=== PATIENT | male | born 1980 | race African-American/Black ===

== ENCOUNTER 2019-01-17 11:27 | Inpatient (IN) | payer OTHER ==
[~2019-01-17] VITALS: Ht 182.9 cm; Wt 112.5 kg
[2019-01-17 11:34] VITALS: BP 166/105
[2019-01-17 11:54] LABS: URINE BILIRUBIN NEGATIVE (Negative); URINE BLOOD NEGATIVE (Negative); URINE CLARITY CLEAR; URINE COLOR YELLOW; URINE GLUCOSE-RANDOM NEGATIVE (Negative); URINE KETONES NEGATIVE (Negative); URINE LEUKOCYTES-REFLEX NEGATIVE (Negative); URINE NITRITE-REFLEX NEGATIVE (Negative); URINE PROTEIN NEGATIVE (Negative); URINE SPECIFIC GRAVITY 1.025 (1.005-1.030); URINE UROBILINOGEN 0.2 E.U./dl (0.2-1.0)
[2019-01-17 12:03] LABS: ABSOLUTE EOSINOPHILS 0.3 thou/uL (0.0-0.7); ABSOLUTE LYMPHOCYTES 1.9 thou/uL (0.8-5.3); ABSOLUTE MONOCYTES 0.5 thou/uL (0.0-1.2); ABSOLUTE NEUTROPHILS 1.6 thou/uL (1.6-8.1); BASOPHILS 1.1 %; EOSINOPHILS 6.3 %; HEMATOCRIT 42.7 % (42.0-52.0); HEMOGLOBIN 13.8 gm/dL (14.0-18.0); LYMPHOCYTES 43.5 %; MCH 22.2 pg (26.0-34.0); MCHC 32.4 g/dL (28.0-37.0); MCV 68.6 fL (80.0-100.0); MONOCYTES 12.1 %; NUCLEATED RBCS 0 /100WBC; PLATELET COUNT* 221 thou/uL (150-400); RBC 6.22 mil/uL (4.50-6.00); RDW-CV 15.7 % (10.5-14.5); WBC 4.4 thou/uL (4.0-11.0)
[2019-01-17 12:33] LABS: ALBUMIN 3.8 g/dL (3.4-5.0); ALKALINE PHOSPHATASE 61 U/L (46-116); ANION GAP 8 mmol/L (7-16); BUN 11 mg/dL (7-18); CHLORIDE 104 mmol/L (98-107); CO2 28 mmol/L (21-32); CREATININE 1.2 mg/dL (0.6-1.3); GLUCOSE 91 mg/dL (70-99); POTASSIUM 3.9 mmol/L (3.5-5.1); SGOT 23 U/L (15-37); SGPT 40 U/L (30-65); SODIUM 140 mmol/L (136-145); TOTAL BILIRUBIN 0.5 mg/dL (<0.1-1.0); TOTAL PROTEIN 8.1 g/dL (6.4-8.2); TROPONIN-I LEVEL <0.06 ng/mL (<0.06)
[2019-01-17 12:45] LABS: HYPOCHROMASIA 1+; MICROCYTES 3+; PLATELET ESTIMATE ADEQUATE
[2019-01-17 13:42] VITALS: BP 169/105
[2019-01-17 14:30] VITALS: BP 143/96
--- NOTE | 2019-01-17 16:31 | EKG ---
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1980 Requested By: Dora Taylor Order Number: [id number] MD: Philippe Jarvis Measurements Intervals [place] Rate: 58 P: 29 [place]: 183 QRS: 14 QRSD: 104 T: -2 QT: 401 QTc: 394 Interpretive Statements Sinus rhythm Probable left atrial enlargement Left ventricular hypertrophy nonspecific st-t changes No previous ECG available for comparison Electronically Signed On 01-17-2019 16:31:12 CDT by Philippe Jarvis [email or web address] <ELECTRONICALLY SIGNED> By: Philippe Jarvis MD, [facility] 01/17/19 1631 1225 1225 Philippe Jarvis MD, [facility] /EPI
--- NOTE | 2019-01-17 18:44 | 2DMMODE ---
[place] [address] 2 D/M-MODE ECHOCARDIOGRAM Name: EVERARDO HARDEN [place] Room: [address] IN [facility]#: [id number] Admission: 01/17/19 Attend Phys: Genevieve Hurtado, Discharge: Date of : 76 Date of Service: 01/17/19 1844 Report #: [id number] THIS REPORT FOR: //name// APPROVED REPORT Study performed: 01/17/2019 15:51:35 EXAM: Comprehensive 2D, Doppler, and color-flow Echocardiogram Patient Location: In-Patient Room #: [facility] Status: routine BSA: 2.43 HR: 67 bpm BP: 169/105 mmHg Rhythm: NSR Other Information Study Quality: Good Indications Syncope Chest Pain 2D Dimensions IVSd: 13.48 (7-11mm) LVOT Diam: 23.47 (18-24mm) LVDd: 50.86 mm PWd: 11.49 (7-11mm) Ascending Ao: 32.25 (22-36mm) LVDs: 33.03 (25-40mm) Aortic Root: 34.39 mm Volumes Left Atrial Volume (Systole) LA ESV Index: 35.40 mL/m2 Aortic Valve AoV Peak Josué.: 1.38 m/s AO Peak Gr.: 7.56 mmHg LVOT Max P.16 mmHg AO Mean Gr.: 3.89 mmHg LVOT Mean P.97 mmHg LVOT Max V: 1.02 m/s AO V2 VTI: 27.77 cm LVOT Mean V: 0.64 m/s REHANA (VTI): 3.09 cm2 LVOT V1 VTI: 19.82 cm Mitral Valve E/A Ratio: 0.92 MV Decel. Time: 194.76 [place] [address] 2 D/M-MODE ECHOCARDIOGRAM Name: EVERARDO HARDEN [place] Room: [address] IN [facility]#: [id number] Admission: 01/17/19 Attend Phys: Genevieve Hurtado, Discharge: Date of : 76 Date of Service: 01/17/19 1844 Report #: [id number] MV E Max Josué.: 0.63 m/s MV PHT: 56.48 ms MVA (PHT): 3.90 cm2 TDI E/Lateral E': 5.25 E/Medial E': 4.50 Medial E' Josué.: 0.14 m/s Lateral E' Josué.: 0.12 m/s Pulmonary Valve PV Peak Josué.: 1.51 m/s PV Peak Gr.: 9.08 mmHg Tricuspid Valve RAP Estimate: 5.00 mmHg TR Peak Gr.: 29.71 mmHg RVSP: 34.00 mmHg PA Pressure: 34.00 mmHg Left Ventricle The left ventricle is normal size. There is normal LV segmental wall motion. Mild concentric left ventricular hypertrophy. Left ventricular systolic function is normal. LVEF is 60-65%. Transmitral Doppler flow pattern suggests pseudonormalization. Right Ventricle The right ventricle is normal size. The right ventricular systolic function is normal. Atria Left atrium is mildly dilated. The right atrium size is normal. Aortic Valve The aortic valve is normal in structure. No aortic regurgitation is present. There is no aortic valvular stenosis. Mitral Valve The mitral valve is normal in structure. There is no mitral valve regurgitation noted. No evidence of mitral valve stenosis. Tricuspid Valve The tricuspid valve is normal in structure. Trace tricuspid regurgitation. Mild pulmonary hypertension. Pulmonic Valve The pulmonary valve is normal in structure. [place] [address] 2 D/M-MODE ECHOCARDIOGRAM Name: EVERARDO HARDEN [place] Room: [address]#: [id number] Admission: 01/17/19 Attend Phys: Genevieve Hurtado, Discharge: Date of : 76 Date of Service: 01/17/19 1844 Report #: [id number] Great Vessels The aortic root is normal in size. IVC is normal in size and collapses >50% with inspiration. Pericardium There is no pericardial effusion. <Conclusion> The left ventricle is normal size. Mild concentric left ventricular hypertrophy. Left ventricular systolic function is normal. LVEF is 60-65%. Transmitral Doppler flow pattern suggests pseudonormalization. Left atrium is mildly dilated. Trace tricuspid regurgitation. Mild pulmonary hypertension. IVC is normal in size and collapses >50% with inspiration. <ELECTRONICALLY SIGNED> By: Saroj Sampson MD, FACC 01/17/191843 43 43 Saroj Sampson MD, FACC /INF
[2019-01-17 20:00] VITALS: BP 132/86
[2019-01-18] VITALS: BP 138/83
[2019-01-18 04:00] VITALS: BP 128/71
[2019-01-18 05:03] LABS: CHOLESTEROL 204 mg/dL (<200); HDL CHOLESTEROL 44 mg/dL (>40); LDL CHOLESTEROL 106 mg/dL (<100); TC:HDL 4.6 Ratio (Not establshd); TRIGLYCERIDE 273 mg/dL (<150); VLDL 55 mg/dL (<40)
[2019-01-18 05:06] LABS: SERUM ASSESSMENT CLEAR
[2019-01-18 08:10] VITALS: BP 118/76
[2019-01-18] MEDS ORDERED: LISINOPRIL-HCT1 EACH PO (08:33)
[2019-01-18 08:35] VITALS: BP 128/71
[2019-01-18 09:47] VITALS: BP 128/71
== END 2019-01-18 11:15 | disposition home or self-care (01) | DRG 305 ==
LOC: M.ERS 11:27 → M.2W 12:59 → M.TBA-ER 12:59 → M.2W 14:09
PROVIDERS: Personal Emergency Response Attendant; ADMIT Internal Medicine
DX: I16.0 Hypertensive urgency (principal); E78.5 Hyperlipidemia, unspecified; I10 Essential (primary) hypertension; F17.220 Nicotine dependence, chewing tobacco, uncomplicated; K21.9 Gastro-esophageal reflux disease without esophagitis; Z79.82 Long term (current) use of aspirin; Z79.899 Other long term (current) drug therapy; Z91.14 Patient's other noncompliance with medication regimen

== ENCOUNTER 2019-01-20 12:25 | Emergency (ER) | payer OTHER ==
[~2019-01-20] VITALS: Ht 193 cm; Wt 112.5 kg
[~2019-01-20 12:25] MED LIST: LISINOPRIL-HCT1 EACH PO
[2019-01-20 13:00] LABS: ABSOLUTE EOSINOPHILS 0.2 thou/uL (0.0-0.7); ABSOLUTE LYMPHOCYTES 1.4 thou/uL (0.8-5.3); ABSOLUTE MONOCYTES 0.4 thou/uL (0.0-1.2); ABSOLUTE NEUTROPHILS 2.7 thou/uL (1.6-8.1); EOSINOPHILS 3.7 %; HEMATOCRIT 47.3 % (42.0-52.0); HEMOGLOBIN 15.2 gm/dL (14.0-18.0); LYMPHOCYTES 29.9 %; MCH 22.2 pg (26.0-34.0); MCHC 32.2 g/dL (28.0-37.0); MCV 68.9 fL (80.0-100.0); MONOCYTES 8.2 %; MPV 8.1 fl. (7.2-11.1); NUCLEATED RBCS 0 /100WBC; PLATELET COUNT* 258 thou/uL (150-400); POLYS 57.2 %; RBC 6.86 mil/uL (4.50-6.00); RDW-CV 15.8 % (10.5-14.5); WBC 4.8 thou/uL (4.0-11.0)
[2019-01-20 13:19] LABS: ANISOCYTOSIS 2+; HYPOCHROMASIA 1+; MICROCYTES 2+
[2019-01-20 13:23] LABS: ANION GAP 10 mmol/L (7-16); BUN 13 mg/dL (7-18); CALCIUM 9.4 mg/dL (8.5-10.1); CHLORIDE 102 mmol/L (98-107); CO2 29 mmol/L (21-32); CREATININE 1.3 mg/dL (0.6-1.3); GLUCOSE 112 mg/dL (70-99); POTASSIUM 3.6 mmol/L (3.5-5.1); SODIUM 141 mmol/L (136-145); TROPONIN-I LEVEL <0.06 ng/mL (<0.06)
[2019-01-20 13:24] LABS: ALKALINE PHOSPHATASE 63 U/L (46-116); SGOT 21 U/L (15-37); SGPT 48 U/L (30-65); TOTAL BILIRUBIN 0.6 mg/dL (<0.1-1.0); TOTAL PROTEIN 8.7 g/dL (6.4-8.2)
[2019-01-20] MEDS ORDERED: FLEXERIL PO (14:18)
[2019-01-20] MEDS ORDERED: BUTALB-APAP-CA1 EACH PO (14:18)
[2019-01-20 15:25] VITALS: BP 124/67
--- NOTE | 2019-01-20 16:52 | EKG ---
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1980 Requested By: Kristan Miles Order Number: [id number] Surinder MD: Saroj Sampson Measurements Intervals [place] Rate: 72 P: 48 [place]: 173 QRS: 30 QRSD: 107 T: -33 QT: 377 QTc: 413 Interpretive Statements Sinus rhythm Probable left atrial enlargement Left ventricular hypertrophy Lateral infarct, acute (LAD), possible Anterior ST elevation, probably due to LVH Compared to ECG 01/17/2019 12:25:02 Possible myocardial infarct finding now present ST (T wave) deviation still present Electronically Signed On 01-20-2019 16:51:54 CDT by Saroj Sampson [email or web address] <ELECTRONICALLY SIGNED> By: Saroj Sampson MD, FACC 01/20/19 1651 1303 1303 Saroj Sampson MD, [facility] /EPI
--- NOTE | 2019-01-20 16:52 | EKG ---
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1980 Requested By: Chinmay Jamison Order Number: [id number] MD: Saroj Sampson Measurements Intervals [place] Rate: 85 P: 43 [place]: 166 QRS: 35 QRSD: 103 T: -43 QT: 358 QTc: 426 Interpretive Statements Sinus rhythm Probable left atrial enlargement Left ventricular hypertrophy Abnormal T, consider ischemia, diffuse leads ST elevation, consider lateral injury Compared to ECG 01/17/2019 12:25:02 T-wave abnormality now present Possible ischemia now present Myocardial infarct finding now present ST (T wave) deviation still present Electronically Signed On 01-20-2019 16:52:01 CDT by Saroj Sampson [email or web address] <ELECTRONICALLY SIGNED> By: Saroj Sampson MD, FACC 01/20/19 1652 1305 1305 Saroj Sampson MD, FACC /EPI
== END 2019-01-20 15:25 | disposition home or self-care (01) ==
LOC: M.ERS 12:25
PROVIDERS: Nurse Practitioner Psychiatric/Mental Health
DX: S06.0X1A Concussion with loss of consciousness of 30 minutes or less, initial encounter (principal); S16.1XXA Strain of muscle, fascia and tendon at neck level, initial encounter; R55 Syncope and collapse; E78.00 Pure hypercholesterolemia, unspecified; W18.39XA Other fall on same level, initial encounter; Y93.89 Activity, other specified; Y92.89 Other specified places as the place of occurrence of the external cause; Y99.8 Other external cause status